=== PATIENT | female | born 1955 | race Two or more races ===

== ENCOUNTER 2019-02-03 05:38 | Day surgery (SDC) | payer OTHER | END 2019-02-03 10:00 | disposition home or self-care (01) | LOC: AMB-ENDOS 05:38 | DX: K57.32 Diverticulitis of large intestine without perforation or abscess without bleeding (principal); K66.0 Peritoneal adhesions (postprocedural) (postinfection) ==

== ENCOUNTER 2019-07-14 10:15 | Inpatient (IN) | payer OTHER ==
[~2019-07-14] VITALS: Ht 160 cm; Wt 97.5 kg
[2019-07-14] MEDS ORDERED: VERELAN240 MG PO (12:34)
[2019-07-14] MEDS ORDERED: LOSARTAN-HCTZ1 EAC2 PO (12:34)
[2019-07-14] MEDS ORDERED: FOSAMAX70 MG PO (12:35)
[2019-07-14] MEDS ORDERED: ANASTROZOLE1 MG PO (12:35)
[2019-07-14] MEDS ORDERED: CALCIUM500 M1 PO (12:36)
[2019-07-14] MEDS ORDERED: GABAPENTIN100 MG (12:36)
[2019-07-14] MEDS ORDERED: CLONAZEPAM1 MG PO (12:36)
[2019-07-14] MEDS ORDERED: ZOCOR20 MG PO (12:38)
[2019-07-26] MEDS ORDERED: CARAFATE1 GM/10 ML PO (09:56)
[2019-07-26] MEDS ORDERED: PERCOCET 5-3251 EACH PO (09:56)
[2019-07-26] MEDS ORDERED: OMEPRAZOLE40 MG PO (09:56)
== END 2019-07-26 12:35 | disposition home or self-care (01) | DRG 330 ==
LOC: ADM 10:15 → EDSTATUS 10:15 → SURG 07-20 09:51 → O/R 07-20 09:51 → SURH 07-20 10:15 → SURG 07-20 18:48 → SURH 07-22 12:26
PROVIDERS: ADMIT Surgery
PROC: 3E0F7GC Introduction of Other Therapeutic Substance into Respiratory Tract, Via Natural or Artificial Opening (ICD-10-PCS; 2019-07-20)
PROC: 0DT80ZZ Resection of Small Intestine, Open Approach (ICD-10-PCS; principal; 2019-07-20 18:00)
PROC: 0DBV0ZX Excision of Mesentery, Open Approach, Diagnostic (ICD-10-PCS; 2019-07-20 18:00)
DX: C17.8 Malignant neoplasm of overlapping sites of small intestine (principal); K57.32 Diverticulitis of large intestine without perforation or abscess without bleeding; C7B.04 Secondary carcinoid tumors of peritoneum; C17.2 Malignant neoplasm of ileum; E78.00 Pure hypercholesterolemia, unspecified; N18.2 Chronic kidney disease, stage 2 (mild); E21.3 Hyperparathyroidism, unspecified; F41.8 Other specified anxiety disorders; E66.8 Other obesity; C50.411 Malignant neoplasm of upper-outer quadrant of right female breast; K57.30 Diverticulosis of large intestine without perforation or abscess without bleeding; I13.10 Hypertensive heart and chronic kidney disease without heart failure, with stage 1 through stage 4 chronic kidney disease, or unspecified chronic kidney disease